=== PATIENT | female | born 2000 | race Caucasian/White ===

== ENCOUNTER → 2023-01-12 | Outpatient (CLI) | payer OTHER | LOC: M WHC 08:43 | PROVIDERS: ATTEND Advanced Practice Midwife | DX: Z34.82 Encounter for supervision of other normal pregnancy, second trimester (principal); Z3A.21 21 weeks gestation of pregnancy ==

== ENCOUNTER → 2023-01-21 | Outpatient (CLI) | payer OTHER ==
[2023-01-21 18:06] LABS: HEMATOCRIT 35.1 % (36.0-47.0); HEMOGLOBIN 11.3 g/dl (12.0-15.5); MEAN CORPUSCULAR HEMOGLOBIN 30.3 pg (27.0-33.0); MEAN CORPUSCULAR HGB CONC 32.2 g/dl (32.0-36.5); MEAN CORPUSCULAR VOLUME 94.1 fl (80.0-96.0); PLATELET COUNT, AUTOMATED 275 10^3/uL (150-450); RED BLOOD COUNT 3.73 10^6/uL (4.00-5.40); WHITE BLOOD COUNT 16.7 10^3/uL (4.0-10.0)
[2023-01-21 19:15] LABS: CHLAMYDIA DNA AMPLIFICATION NEGATIVE (NEGATIVE); GC DNA AMPLIFICATION NEGATIVE (NEGATIVE)
== END ==
LOC: M PLALAB 14:25
PROVIDERS: ATTEND Obstetrics & Gynecology
DX: Z34.82 Encounter for supervision of other normal pregnancy, second trimester (principal); Z3A.00 Weeks of gestation of pregnancy not specified
CPT/HCPCS: 36415; 82950; 85027; 86850; 86900; 86901; 87810; 87850; G0463

== ENCOUNTER → 2023-04-10 | Outpatient (REF) | payer OTHER | LOC: M SFHCWAGY 17:24 | PROVIDERS: ATTEND Obstetrics & Gynecology | DX: Z36.85 Encounter for antenatal screening for Streptococcus B (principal) ==

== ENCOUNTER → 2023-04-23 | Outpatient (CLI) | payer OTHER ==
[~2023-04-23] MED LIST: ADV250INH INH; IBUP-1022 PO; OXYC1TAB23 PO; PRENTAB9 PO; TUMS750C22 PO
[2023-04-23 16:02] LABS: HEMATOCRIT 32.8 % (36.0-47.0); HEMOGLOBIN 11.1 g/dl (12.0-15.5); MEAN CORPUSCULAR HEMOGLOBIN 30.7 pg (27.0-33.0); MEAN CORPUSCULAR HGB CONC 33.8 g/dl (32.0-36.5); MEAN CORPUSCULAR VOLUME 90.9 fl (80.0-96.0); PLATELET COUNT, AUTOMATED 245 10^3/uL (150-450); RED BLOOD COUNT 3.61 10^6/uL (4.00-5.40); WHITE BLOOD COUNT 13.4 10^3/uL (4.0-10.0)
[2023-04-23 16:32] LABS: CREATININE,RANDOM URINE 133.9 MG/DL
[2023-04-23 16:33] LABS: TOTAL PROTEIN,RANDOM URINE 212.2 MG/DL (0.0-14.0)
[2023-04-23 16:38] LABS: LDH LACTATE DEHYDROGENASE 169 U/L (120-246)
[2023-04-23 16:39] LABS: ALT/SGPT 11 U/L (7.0-40); AST/SGOT 12 U/L (<34); BILIRUBIN,TOTAL 0.3 MG/DL (0.3-1.2); CREATININE FOR GFR 0.64 MG/DL (0.55-1.30); GLOMERULAR FILTRATION RATE > 60.0 (>60)
== END ==
LOC: M PLALAB 14:29
PROVIDERS: ATTEND Advanced Practice Midwife
DX: Z34.03 Encounter for supervision of normal first pregnancy, third trimester (principal)

== ENCOUNTER 2023-04-24 16:32 | Inpatient (IN) | payer OTHER ==
[~2023-04-24] VITALS: Ht 154.9 cm; Wt 92.5 kg
[2023-04-24] MEDS ORDERED: TUMS750C22 PO (16:59)
[2023-04-24] MEDS ORDERED: PRENTAB9 PO (16:59)
[2023-04-24] MEDS ORDERED: ADV250INH INH (17:00)
[2023-04-24 17:03] VITALS: BP 137/77; O2SAT 97
[2023-04-24] MEDS ORDERED: TRANEXAMIC ACID INJection 1,000 MG in NS 100 ML IV PRN (17:15)
[2023-04-24] MEDS ORDERED: OXYTOCIN DRIP 30 UNITS in IV 1 EA IV PRN (17:15)
[2023-04-24] MEDS ORDERED: CARBOPROST TROMETHAMINE 250 MCG/ML AMP IM PRN (17:15)
[2023-04-24] MEDS ORDERED: LIDOCAINE 1% MDV 20ML VIAL INFIL PRN (17:15)
[2023-04-24] MEDS: LACTATED RINGER'S 1000 ML IV STA (17:50)
[2023-04-24 17:56] LABS: HEMATOCRIT 33.6 % (36.0-47.0); HEMOGLOBIN 11.6 g/dl (12.0-15.5); MEAN CORPUSCULAR HEMOGLOBIN 31.2 pg (27.0-33.0); MEAN CORPUSCULAR HGB CONC 34.5 g/dl (32.0-36.5); MEAN CORPUSCULAR VOLUME 90.3 fl (80.0-96.0); PLATELET COUNT, AUTOMATED 274 10^3/uL (150-450); RED BLOOD COUNT 3.72 10^6/uL (4.00-5.40); WHITE BLOOD COUNT 15.3 10^3/uL (4.0-10.0)
[2023-04-24 18:45] VITALS: BP 145/77
[2023-04-24] MEDS: miSOPROStol 50MCG 1/2 TABLET PO SCH (18:59)
[2023-04-24] MEDS: ADVAIR HFA 115/21MCG INHALER INH SCH (20:07)
[2023-04-24 20:09] VITALS: BP 134/63
[2023-04-24 21:12] VITALS: BP 134/65
[2023-04-24 22:59] VITALS: BP 131/67
[2023-04-25] VITALS (42 sets, daily range): BP systolic 106–165; BP diastolic 54–97
[2023-04-25] MEDS ORDERED: LR 1,000 ML IV SCH (09:45)
[2023-04-25] MEDS: OXYTOCIN DRIP 30 UNITS in IV 1 EA IV SCH (10:01)
[2023-04-25] MEDS: LR 1,000 ML IV SCH (10:01)
[2023-04-25] MEDS ORDERED: EPIDURAL/PCA KEYS XX PRN (12:05)
[2023-04-25] MEDS ORDERED: LR 500 ML IV PRN (12:05)
[2023-04-25] MEDS ORDERED: NALOXONE INJ 0.4MG/1ML VIAL IV PRN (12:05)
[2023-04-25] MEDS ORDERED: diphenhydrAMINE 50MG/ML VIAL IV PRN (12:05)
[2023-04-25] MEDS ORDERED: ePHEDrine SULFATE 25 MG/5 ML(5MG/ML) SYRINGE IVP PRN (12:05)
[2023-04-25] MEDS: FENTANYL/ROPIVACAINE/NACL BAG 100 ML EPIDURAL SCH (12:19)
[2023-04-25] MEDS: ONDANSETRON 4MG 2ML VIAL IV PRN (15:09)
[2023-04-25] MEDS: METOCLOPRAMIDE INJ 10MG/2ML VIAL IV ONE (18:52)
[2023-04-26] VITALS (14 sets, daily range): BP systolic 134–168; BP diastolic 73–96; TEMP 99.1; O2SAT 97–99
[2023-04-26] MEDS: AZITHROMYCIN INJ 500 MG, VIAL MATE ADAPTER 1 EACH in NS 250 ML IV ONE (01:23)
[2023-04-26] MEDS ORDERED: ONDANSETRON 4MG 2ML VIAL IV PRN ×2 (02:05)
[2023-04-26] MEDS ORDERED: oxyCODONE 5MG TAB PO PRN (02:05)
[2023-04-26] MEDS ORDERED: METOCLOPRAMIDE INJ 10MG/2ML VIAL IV PRN ×2 (02:05→02:40)
[2023-04-26] MEDS ORDERED: LR 1,000 ML IV SCH (02:05)
[2023-04-26] MEDS ORDERED: **NOTE PATIENT COMMENT** MISC XX SCH ×2 (02:05→02:40)
[2023-04-26] MEDS ORDERED: NALOXONE INJ 0.4MG/1ML VIAL IV PRN ×3 (02:05→02:40)
[2023-04-26] MEDS ORDERED: SLF 3 ML SYR IV SCH (02:05)
[2023-04-26] MEDS ORDERED: diphenhydrAMINE 50MG/ML VIAL IV PRN ×2 (02:05→02:40)
[2023-04-26] MEDS ORDERED: OXYTOCIN 30UNITS IN 0.9% NaCl 500ML IV BAG As Ordered ONE (02:08)
[2023-04-26] MEDS ORDERED: PHENYLephrine 500MCG 5ML (100MCG/ML) SYRINGE As Ordered ONE (02:08)
[2023-04-26] MEDS ORDERED: ONDANSETRON 4MG 2ML VIAL As Ordered ONE (02:08)
[2023-04-26] MEDS ORDERED: MORPHINE PRES-FREE INJ 10 MG/10 ML VIAL As Ordered ONE (02:08)
[2023-04-26] MEDS ORDERED: fentaNYL 100 MCG/2 ML INJECTION As Ordered ONE (02:08)
[2023-04-26] MEDS ORDERED: KETOROLAC 60MG 2ML VIAL As Ordered ONE (02:23)
[2023-04-26] MEDS ORDERED: SIMETHICONE 80MG CHEW TAB PO PRN (02:35)
[2023-04-26] MEDS ORDERED: RHOGAM 300MCG (1500IU) INJ IM SCH (02:35)
[2023-04-26] MEDS ORDERED: PERCOCET 5MG/325MG TAB PO PRN (02:35)
[2023-04-26] MEDS ORDERED: fentaNYL 100 MCG/2 ML INJECTION IV PRN (02:40)
[2023-04-26] MEDS ORDERED: NALBUPHINE HCL 1MG/0.1ML (100MG/10ML) MDV IV PRN (02:40)
[2023-04-26] MEDS ORDERED: MEPERIDINE 25 MG/ML 1ML VIAL IV PRN (02:40)
[2023-04-26] MEDS: ALBUTEROL 90 MCG/ACT 8GM HFA INHALER INH ONE (05:04)
[2023-04-26] MEDS: traMADol 50 MG TAB PO ONE (05:05)
[2023-04-26] MEDS: LR 1,000 ML IV SCH (05:05)
[2023-04-26] MEDS: ADVAIR HFA 115/21MCG INHALER INH ONE (05:05)
[2023-04-26] MEDS: ceFAZolin SOD 2 GM in IV 1 EA IV ONE (05:05)
[2023-04-26] MEDS: OXYTOCIN DRIP 30 UNITS in IV 1 EA IV SCH (05:06)
[2023-04-26] MEDS: SLF 3 ML SYR IV SCH (05:06)
[2023-04-26] MEDS: PRENATAL VITAMINS CHEWABLE TABLET PO SCH (08:15)
[2023-04-26] MEDS: KETOROLAC 30 MG/ML 1ML VIAL IV SCH (08:15)
[2023-04-26] MEDS ORDERED: PRENATAL VITAMINS CHEWABLE TABLET PO SCH (09:00)
[2023-04-26] MEDS: ADVAIR HFA 115/21MCG INHALER INH SCH (20:38)
[2023-04-27 02:00] VITALS: BP 142/88; O2SAT 98
[2023-04-27] MEDS: IBUPROFEN 800 MG TAB PO SCH (03:05)
[2023-04-27 05:44] VITALS: BP 133/71; O2SAT 98
[2023-04-27 07:17] LABS: HEMATOCRIT 26.7 % (36.0-47.0); MEAN CORPUSCULAR HEMOGLOBIN 30.9 pg (27.0-33.0); MEAN CORPUSCULAR HGB CONC 33.7 g/dl (32.0-36.5); MEAN CORPUSCULAR VOLUME 91.8 fl (80.0-96.0); PLATELET COUNT, AUTOMATED 192 10^3/uL (150-450); RED BLOOD COUNT 2.91 10^6/uL (4.00-5.40)
[2023-04-27 10:00] VITALS: BP 148/91; O2SAT 99
[2023-04-27] MEDS: PERCOCET 5MG/325MG TAB PO PRN (10:22)
[2023-04-27] MEDS: DOCUSATE SODIUM 100MG CAPSULE PO PRN (10:22)
[2023-04-27 18:00] VITALS: BP 141/85; O2SAT 98
[2023-04-27] MEDS: ACETAMINOPHEN 500 MG TAB PO ONE (18:19)
[2023-04-27 18:38] LABS: HEMOGLOBIN 10.1 g/dl (12.0-15.5); MEAN CORPUSCULAR HEMOGLOBIN 31.2 pg (27.0-33.0); MEAN CORPUSCULAR HGB CONC 33.7 g/dl (32.0-36.5); MEAN CORPUSCULAR VOLUME 92.6 fl (80.0-96.0); PLATELET COUNT, AUTOMATED 260 10^3/uL (150-450); RED BLOOD COUNT 3.24 10^6/uL (4.00-5.40); WHITE BLOOD COUNT 22.1 10^3/uL (4.0-10.0)
[2023-04-27 22:00] VITALS: BP 142/80; O2SAT 98
[2023-04-27] MEDS: CLINDAMYCIN 900 MG in IV 1 EA IV SCH (23:19)
[2023-04-28] VITALS (7 sets, daily range): BP systolic 132–173; BP diastolic 74–90; O2SAT 96–99
[2023-04-28] MEDS: GENTAMICIN 400 MG in D5W 100 ML IV SCH (00:56)
[2023-04-28] MEDS: MEASLES,MUMPS,RUBELLA VACCINE INJ (MMR-II) SC.IMMUN ONE (09:00)
[2023-04-28] MEDS: BOOSTRIX VACCINE (TETANUS/DIPHTH/ACEL. PERTUSSIS) 0.5ML SYR IM.IMMUN ONE (09:00)
[2023-04-28] MEDS: AMPICILLIN SOD 2 GM in D5W MINI-BAG PLUS 100 ML IV SCH (13:59)
[2023-04-29 02:00] VITALS: BP 141/94
[2023-04-29 06:00] VITALS: BP 128/69
[2023-04-29 07:35] LABS: HEMATOCRIT 23.8 % (36.0-47.0); HEMOGLOBIN 8.2 g/dl (12.0-15.5); MEAN CORPUSCULAR HEMOGLOBIN 31.5 pg (27.0-33.0); MEAN CORPUSCULAR HGB CONC 34.5 g/dl (32.0-36.5); MEAN CORPUSCULAR VOLUME 91.5 fl (80.0-96.0); PLATELET COUNT, AUTOMATED 233 10^3/uL (150-450); WHITE BLOOD COUNT 17.5 10^3/uL (4.0-10.0)
[2023-04-29] MEDS ORDERED: **** TDAP VACCINE DUE PRIOR TO D/C**** MISC XX SCH (09:00)
[2023-04-29 10:00] VITALS: BP 151/86; O2SAT 98
[2023-04-29 10:20] VITALS: BP 150/88
[2023-04-29] MEDS ORDERED: OXYC1TAB23 PO (13:33)
[2023-04-29] MEDS ORDERED: IBUP-1022 PO (13:33)
== END 2023-04-29 12:25 | disposition home or self-care (01) | DRG 773 ==
LOC: M LDO 16:32 → M LDI 16:46 → M OBS 04-26 04:06
PROVIDERS: ADMIT Advanced Practice Midwife; ATTEND Advanced Practice Midwife
PROC: 3E0DXGC Introduction of Other Therapeutic Substance into Mouth and Pharynx, External Approach (ICD-10-PCS; 2023-04-24)
PROC: 3E033VJ Introduction of Other Hormone into Peripheral Vein, Percutaneous Approach (ICD-10-PCS; 2023-04-24)
PROC: 10D00Z1 Extraction of Products of Conception, Low, Open Approach (ICD-10-PCS; principal; 2023-04-26 01:31)
DX: O14.94 Unspecified pre-eclampsia, complicating childbirth (principal); Z37.0 Single live birth; Z3A.38 38 weeks gestation of pregnancy; O86.12 Endometritis following delivery; O32.4XX0 Maternal care for high head at term, not applicable or unspecified